=== PATIENT | male | born 1960 | race Caucasian/White ===

== ENCOUNTER 2024-10-01 16:47 | Emergency (ER) | payer MEDICARE, SELFPAY ==
[2024-10-01 16:57] VITALS: BP 116/67; PULSE 84; RESP 16; TEMP 36.5; O2SAT 99
--- NOTE | 2024-10-01 16:59 | XRR_ITS ---
PROCEDURE INFORMATION: Exam: XR Right Finger(s) Exam date and time: 10/01/2024 5:07 PM Age: 64 years old Clinical indication: Injury or trauma; Other: Table saw; Laceration; Right; Little finger; Additional info: Deep laceration 5th digit TECHNIQUE: Imaging protocol: Radiologic exam of the right fingers. Views: Minimum 2 views. COMPARISON: No relevant prior studies available. FINDINGS: Bones/joints: Deep laceration to the 5th digit extending into the head of the 5th middle phalanx. There is fracture and fragmentation of the ulnar aspect of the 5th middle phalanx, with a displaced osseous fragment. Fracture line extends into the distal interphalangeal joint. The distal phalanx is intact. The remainder of the osseous structures appear intact. Soft tissues: See above. XR/XR finger RT min 2V 25810 IMPRESSION: Deep laceration to the medial/ulnar aspect of the 5th digit with associated fracture and fragmentation of the middle phalanx head extending into the distal interphalangeal joint.
--- NOTE | 2024-10-01 17:12 | W.ED.WOUNDLC ---
HPI - Wound/Laceration General: Chief Complaint: Wound/Laceration Stated Complaint: cut to fingers Time Seen by Provider: 10/01/24 16:56 History of Present Illness: Venkata Guerrero is a [id number]-sqtn-twraq[place] 64-year-old male that presents to the emergency department with a laceration to the fifth digit. Patient states that he was using a circular saw when he cut into the finger. He has a deep laceration to the dorsal lateral aspect of the fifth digit between DIP PIP. No active bleeding here He is able to flex and extend the digit He is not up-to-date on tetanus He denies any other injuries He denies any syncope chest pain or shortness of breath He is complaining of quite a bit of pain. Related Data Previous Rx's Medication Instructions Recorded amoxicillin 875 mg-potassium 1 tab PO BID #10 tabs 10/01/24 clavulanate 125 mg tablet ketorolac 10 mg tablet 10 mg PO TID PRN pain 5 days #15 10/01/24 tabs Review of Systems General: Reports: 10 or more systems reviewed and unremarkable except in HPI and below Physical Exam Const: COMMON NORMALS: no acute distress, patient oriented x3 and alert GENERAL APPEARANCE: cooperative ORIENTATION/CONSCIOUSNESS: Yes awake, Yes oriented to person, Yes oriented to place and Yes oriented to time Neck/C-Spine: COMMON NORMALS: full ROM GENERAL: Yes normal visual inspection Extremity: COMMON NORMALS: normal to inspection NARRATIVE EXTREMITY EXAM: Right upper extremity: Patient is able to flex and extend the wrist He is able to give a thumbs up, make an okay sign, cross fingers abduct fingers and make a fist He is able to flex and extend the fifth digit. He has a 3 cm laceration that begins on the dorsal aspect of the fifth digit and extends to the palmar aspect. His located between DIP and PIP. No active bleeding Cap refills intact No nailbed involvement GENERAL: Yes normal exam except as noted Neuro: COMMON NORMALS: patient oriented x3 SENSORIUM/ORIENTATION: Yes alert, Yes oriented to person, Yes oriented to place and Yes oriented to time CRANIAL NERVES: Yes CN normal except as noted Skin: COMMON NORMALS: no rashes or lesions noted, no wounds and turgor normal GENERAL SKIN EXAM: no rashes or lesions noted and turgor normal Course Vital Signs: Vital signs: Vital Signs Temperature 97.7 F 10/01/24 16:57 Pulse Rate 84 10/01/24 16:57 Respiratory Rate 16 10/01/24 16:57 Blood Pressure 116/67 10/01/24 16:57 Pulse Oximetry 99 10/01/24 16:57 Oxygen Delivery Me thod Room Air 10/01/24 16:57 MDM - Wound/Laceration Medical Decision Making Patient is a [id number] 64-year-old man that presents to the emergency department with a laceration to the right fifth digit between the PIP and DIP. It extends from the dorsal lateral aspect into the palmar lateral aspect. The patient underwent a ring digital block with bupivacaine. Approximately 2 mL infiltrated. Once adequate anesthesia was achieved I was able to explore the wound bed. The laceration extends into bone and an XR of the fingers reveals a fracture mid middle phalanx into the DIP joint. There appears to be ruptured tendon but patient maintains flexion extension function of the digit. Patient underwent copious irrigation as well as scrubbing with a Betadine saline mix. I revised the skin borders. The tissue was pretty macerated by the saw. I put 2 Vicryl in the deep tissue to approximate the area and had 5 vertical mattress sutures on the skin. I was able to approximate the skin. Nonstick dressing applied and finger splint. I did speak with Dr. Whitney Lake [facility]. Will be happy to see the patient. Patient is to call Thursday for an appointment. Patient was given this information. I gave the patient Augmentin here in the emergency department as well as a Tdap. Patient is can go home on 5 days of Augmentin. All radiology interpretation(s) finalized by discharge Discharge Plan Discharge Patient Disposition: Home Clinical Impression: Laceration, Open finger fracture Condition: Stable Prescriptions: New amoxicillin-pot clavulanate 875-125 mg tablet 1 tab PO BID Qty: 10 0RF ketorolac 10 mg tablet 10 mg PO TID PRN (Reason: pain) 5 Days Qty: 15 0RF Discharge Orders: Discharge ED (Routine); Ordered 10/01/24 Ordered By: Praveen Abrams Discharge Diet: Advance as tolerated Discharge Activity: Resume usual activity Patient Instructions: Finger Fracture (ED), Finger Laceration (ED), Opioid Safety, Pain Management Activity Restrictions/Additional Instructions: We have referred you over to Dr. Whitney Lake, orthopedic hand surgeon at [facility]. He can be reached at [phone]. His address is: [address] [place] [id number] Splint for comfort. Augmentin as prescribed I have given you prescription of Toradol. This is a nonsteroidal anti-inflammatory drug that will help decrease inflammation and pain. You can get finger wet. Wash with soap and water but do not submerge it. Follow-up with Dr. Lake as recommended Coding Level of Care Code ED Atmospheric Physicist for Liliane Reynolds
[2024-10-01] MEDS: tetanus-dipt-pertussis 0.5 mL SDV IM (17:32)
[2024-10-01] MEDS: BUPivacaine 0.5% INJ 10 mL INJECTION (17:41)
[2024-10-01] MEDS: HYDROcodone-acetaminophen 5-325 mg Tablet 1 TAB PO (19:11)
[2024-10-01] MEDS: amoxicillin-clav 875-125 mg Tablet 1 TAB PO (19:11)
--- NOTE | 2024-10-04 12:06 | DCPLANNER ---
Referral sent to [facility] hand surgeon Whitney Lake
== END 2024-10-01 19:16 | disposition home or self-care (01) ==
PROVIDERS: Emergency Provider Nurse Practitioner
DX: S61.216A Laceration without foreign body of right little finger without damage to nail, initial encounter (principal); S62.626A Displaced fracture of middle phalanx of right little finger, initial encounter for closed fracture; W27.0XXA Contact with workbench tool, initial encounter
CPT/HCPCS: 13132; 73140; 90471; 90715; 99284; J3490